=== PATIENT | female | born 2000 | race Hispanic/Latino ===

== ENCOUNTER 2023-12-28 13:41 | Emergency (ER) | payer BC, OTHER ==
[2023-12-28] MEDS ORDERED: ONDANSETRON 4 MG/2 ML VIAL ONE (14:48)
[2023-12-28] MEDS ORDERED: MORPHINE 4 MG/ML SYR ONE (14:49)
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
[2023-12-28 16:51] VITALS: BP 155/90; TEMP 98.3; O2SAT 100
== END 2023-12-28 16:32 | disposition home or self-care (01) ==
LOC: ER 13:41
DX: R07.89 Other chest pain (principal); M54.2 Cervicalgia
CPT/HCPCS: 70450; 72125; 71260; 74177; 96375; 96374; 99285; Q9967; J2405